=== PATIENT | female | born 1950 | race Caucasian/White ===

== ENCOUNTER 2021-01-11 09:15 | Observation (INO) ==
[~2021-01-11 09:15] MED LIST: Buffered Lidocaine 1% SYRIN 1 ml INTRADERM ONE; Bupivacaine 0.25% SDV 30 ML ONE; Bupivacaine 0.5% SDV PF 30ML VIAL ONE; Ketamine HCL 50 mg/ml 10 ml VIAL (500 MG) ONE; Lactated Ringers 1000 ml BAG 1,000 ML IV SCH; Lidocaine 2% PF 10 ML AMP ONE; Lidocaine 2% PF 5 ML VIAL ONE; Propofol 10 MG/ML 20 ML BTL ONE
[2021-01-11] MEDS ORDERED: ceFAZolin 2 GM PREMIX 2 GM/50 ML BAG ONE (09:41)
[2021-01-11] MEDS ORDERED: Midazolam 2 mg/2 ml VIAL 1 mg/ml 2 ml VIAL (2 mg) ONE ×2 (10:38→11:51)
[2021-01-11] MEDS ORDERED: fentaNYL 100 mcg/2 ml 50 MCG/ML VIAL ONE (10:38)
[2021-01-11] MEDS ORDERED: ROPIVACAINE 5 MG/ML 30 ML BTL (0.5%) ONE (10:42)
[2021-01-11] MEDS ORDERED: Dexamethasone IV 4 MG/ML VIAL 1 ml VIAL ONE (11:52)
[2021-01-11] MEDS ORDERED: Ondansetron 4 mg VIAL 2 MG/ML 2 ml VIAL ONE (11:52)
[2021-01-11] MEDS ORDERED: Glycopyrrolate IV 0.2 MG/ML 1 ML VIAL ONE ×2 (11:54→11:58)
[2021-01-11] MEDS ORDERED: Lactulose 30 ml UDC PO PRN (12:18)
[2021-01-11] MEDS ORDERED: Ondansetron ODT 4 mg TAB 4 MG TAB PO PRN (12:18)
[2021-01-11] MEDS ORDERED: Magnesium Hydroxide LIQ 30 ML UDC PO PRN (12:18)
[2021-01-11] MEDS ORDERED: diPHENhydraMINE 25 mg TAB PO PRN (12:18)
[2021-01-11] MEDS ORDERED: diPHENhydraMINE IV 50 MG/ML 1 ml VIAL (BENADRYL) IV PRN (12:18)
[2021-01-11] MEDS ORDERED: Morphine 2 MG/ML SYRINGE IV PRN (12:18)
[2021-01-11] MEDS ORDERED: fentaNYL 100 mcg/2 ml 50 MCG/ML VIAL IV PRN (14:47)
[2021-01-11] MEDS: Lactated Ringers 1000 ml BAG 1,000 ML IV SCH (16:06)
[2021-01-11] MEDS: Ondansetron 4 mg VIAL 2 MG/ML 2 ml VIAL IV PRN (16:38)
[2021-01-11] MEDS: ceFAZolin 1 GM ADVAN 1 GM in NS 0.9% 50 ML 50 ML IVPB SCH (20:45)
[2021-01-11] MEDS: Magnesium Hydroxide LIQ 30 ML UDC PO SCH (21:51)
[2021-01-12] MEDS: Lactated Ringers 1000 ml BAG 1,000 ML IV SCH (00:59)
[2021-01-12] MEDS: ceFAZolin 1 GM ADVAN 1 GM in NS 0.9% 50 ML 50 ML IVPB SCH ×2 (04:01→12:47)
[2021-01-12 05:45] LABS: Hematocrit 30 % (35-47); Hemoglobin 10.2 g/dL (12.0-16.0); Mean Platelet Volume 8.2 fL (7.4-10.4); Platelet Count 271 10^3/uL (150-450)
[2021-01-12 06:56] LABS: Calcium 8.8 mg/dL (8.6-10.3); EGFR African American 98.2 (>60); EGFR Non-African American 81.2 (>60)
[2021-01-12] MEDS: Magnesium Hydroxide LIQ 30 ML UDC PO SCH (08:12)
[2021-01-12] MEDS: Ondansetron 4 mg VIAL 2 MG/ML 2 ml VIAL IV PRN (08:44)
[2021-01-12] MEDS ORDERED: Vitamin THERAPEUTIC TAB PO SCH (09:00)
[2021-01-12 11:52] VITALS: BP 138/63
== END 2021-01-12 15:37 | disposition home or self-care (01) ==
LOC: OR 09:15 → SSU 09:15
PROVIDERS: ADMIT Orthopaedic Surgery Adult Reconstructive Orthopaedic Surgery; ATTEND Orthopaedic Surgery Adult Reconstructive Orthopaedic Surgery